=== PATIENT | male | born 2000 | race Two or more races ===

== ENCOUNTER 2019-12-21 13:00 | Emergency (ER) | payer OTHER ==
[2019-12-21] MEDS ORDERED: CLINDAMYCIN 600 MG/D5W RTU 600 MG/50 ML RTUPB IV ONE (14:00)
[2019-12-21] MEDS ORDERED: LIDOCAINE 1%/EPINEPHRINE INJ 20 ML VIAL INJ ONE (14:00)
--- NOTE | 2019-12-21 14:05 | ER Document Report ---
ED General - General Chief Complaint: Eye Problem Stated Complaint: RIGHT FACE SWELLING Time Seen by Provider: 12/21/19 13:58 Notes: CHIEF COMPLAINT: Right facial swelling HPI: 19-year-old male presenting to the emergency department complaining of swelling to the medial aspect of the right eyebrow over the last 3 days progressively worsening. Patient states that he did see his PCP yesterday who squeezed the area obtained some purulent discharge and started him on Bactrim and amoxicillin. Patient states the swelling has now spread around the right eye and into the face. No definite fevers. No vision loss ROS: See HPI - all other systems were reviewed and are otherwise negative Constitutional: no fever Eyes: no drainage, no blurred vision ENT: no runny nose, no sore throat Integumentary: + rash Allergy: no hives MEDICATIONS: I agree with the patient medications as charted by the RN. ALLERGIES: I agree with the allergies as charted by the RN. PAST MEDICAL HISTORY/PAST SURGICAL HISTORY: Reviewed and agree as charted by RN. SOCIAL HISTORY: Reviewed and agree as charted by RN. FAMILY HISTORY: No significant familial comorbid conditions directly related to patient complaint EXAM: Reviewed vital signs as charted by RN. CONSTITUTIONAL: Alert and oriented and responds appropriately to questions. Well-appearing; well-nourished mild distress secondary to discomfort HEAD: Normocephalic; atraumatic EYES: PERRL; Conjunctivae clear, sclerae non-icteric. There is swelling of the right upper and lower eyelids with slight erythema. There is an indurated fluctuant area measuring 1 cm to the medial aspect of the right eyebrow. There is some overlying erythema in the right preseptal region with very minimal tenderness on palpation ENT: normal nose; no rhinorrhea; moist mucous membranes; pharynx without lesions noted, no uvula edema or deviation, no tonsillar hypertrophy, phonation normal NECK: Supple without meningismus; non-tender; no cervical lymphadenopathy, no masses CARD: RRR; no murmurs, no clicks, no rubs, no gallops RESP: Normal chest excursion without splinting or tachypnea; breath sounds clear and equal bilaterally ABD/GI: non-distended; soft, non-tender BACK: The back appears normal and is non-tender to palpation, there is no CVA tenderness EXT: Normal ROM in all joints; non-tender to palpation; no cyanosis, no effusions, no edema SKIN: Normal color for age and race; warm; dry; good turgor NEURO: Moves all extremities equally; Motor and sensory function intact PSYCH: The patient's mood and manner are appropriate. Grooming and personal hygiene are appropriate. MDM: 19-year-old male with small abscess area medial to the eyebrow with periorbital and facial cellulitis. Started on Bactrim and amoxicillin yesterday. Will give patient a dose of IV clindamycin plan to incise and drain the abscess. Continue warm compresses switch patient to clindamycin orally. Bring patient back in 24 hours for recheck TRAVEL OUTSIDE OF THE [place] IN LAST 30 DAYS: No - Related Data Allergies/Adverse Reactions: No Known Allergies Allergy (Unverified 12/21/19 14:51) Past Medical History - Social History Smoking Status: Unknown if Ever Smoked Family History: Reviewed & Not Pertinent Patient has suicidal ideation: No Patient has homicidal ideation: No Physical Exam - Vital signs Vitals: Temp Pulse Resp BP Pulse Ox 98.2 F 86 18 151/83 H 97 12/21/19 13:05 12/21/19 13:05 12/21/19 13:05 12/21/19 13:05 12/21/19 13:05 Course - Vital Signs Vital signs: Temp Pulse Resp BP Pulse Ox 98.2 F 86 18 151/83 H 97 12/21/19 13:05 12/21/19 13:05 12/21/19 13:05 12/21/19 13:05 12/21/19 13:05 Procedures - Incision and Drainage Right Medial Face Time completed: 15:05 Type: Simple Anesthetic type: 1% Lidocaine w/epi mL's of anesthetic: 1 I&D procedure: Betadine prep applied, Iodoform packing placed, Sterile dressing applied Incision Method: Incision made by scalpel Amount/type of drainage: 1 Discharge - Discharge Clinical Impression: Abscess of face, Facial cellulitis Condition: Stable Disposition: HOME, SELF-CARE Additional Instructions: 1. packing out in 2-3 days 2. follow up with your primary care provider for further evaluation in 2-3 days 3. medicines as prescribed, take Tylenol or Motrin for pain 4. return sooner for any worsening condition, increasing redness or onset of fever 5. apply warm compresses to the wound area 2-3 times daily 6. stop the Bactrim, start the Clindamycin Prescriptions: Clindamycin HCl 300 mg PO TID #30 capsule
[2019-12-21] MEDS ORDERED: HYDROCODONE/ACETAMINOPHEN 5-325 MG TABLET PO ONE (15:24)
[2019-12-21 15:49] VITALS: BP 148/88
== END 2019-12-21 15:48 | disposition home or self-care (01) ==
LOC: ER 13:00
DX: L03.211 Cellulitis of face (principal); L02.01 Cutaneous abscess of face
CPT/HCPCS: 99283; 96365; 10060; J3490

== ENCOUNTER 2019-12-23 13:22 | Emergency (ER) | payer OTHER ==
--- NOTE | 2019-12-23 13:47 | ER Document Report ---
HPI - HPI Time Seen by Provider: 12/23/19 13:41 Notes: CHIEF COMPLAINT: Recheck of right eyebrow abscess and facial cellulitis HPI: 19-year-old male returning for reevaluation of right eyebrow's abscess with facial cellulitis. Has been taking the antibiotics. States the swelling is much improved. No fevers ROS: See HPI - all other systems were reviewed and are otherwise negative Constitutional: no fever Eyes: no drainage, no blurred vision ENT: no runny nose, no sore throat Integumentary: + rash Allergy: no hives MEDICATIONS: I agree with the patient medications as charted by the RN. ALLERGIES: I agree with the allergies as charted by the RN. PAST MEDICAL HISTORY/PAST SURGICAL HISTORY: Reviewed and agree as charted by RN. SOCIAL HISTORY: Reviewed and agree as charted by RN. FAMILY HISTORY: No significant familial comorbid conditions directly related to patient complaint EXAM: Reviewed vital signs as charted by RN. CONSTITUTIONAL: Alert and oriented and responds appropriately to questions. Well-appearing; well-nourished HEAD: Normocephalic; atraumatic EYES: PERRL; Conjunctivae clear, sclerae non-icteric ENT: normal nose; no rhinorrhea; moist mucous membranes NECK: Supple without meningismus; non-tender; no cervical lymphadenopathy, no masses SKIN: Normal color for age and race; warm; dry; good turgor; abscess cavity noted to the medial aspect of the right eyebrow. Packing was in place. The periorbital cellulitis and facial cellulitis that was present previously is much improved. Patient is now able to fully open the eye. I did remove the packing was able to express a small amount of purulent discharge and replaced a dry dressing over the wound area NEURO: Moves all extremities equally; Motor and sensory function intact PSYCH: The patient's mood and manner are appropriate. Grooming and personal hygiene are appropriate. MDM: 19-year-old male that I saw 2 days ago with a right facial and periorbital cellulitis with an abscess that was drained. Facial and periorbital cellulitis have improved. Removed packing, did not repack, dry dressings, warm compresses follow-up PCP Past Medical History - Social History Smoking Status: Unknown if Ever Smoked Family History: Reviewed & Not Pertinent Vertical Provider Document - INFECTION CONTROL TRAVEL OUTSIDE OF THE [place] IN LAST 30 DAYS: No Discharge - Discharge Clinical Impression: Wound check, abscess Condition: Stable Disposition: HOME, SELF-CARE Additional Instructions: Continue dry dressings until healed. Warm compresses twice daily. Follow-up primary care provider reevaluation continue antibiotics Forms: Return to Work
[2019-12-23 13:59] VITALS: BP 134/67
== END 2019-12-23 13:51 | disposition home or self-care (01) ==
LOC: ER 13:22
DX: L02.01 Cutaneous abscess of face (principal); L03.211 Cellulitis of face; L03.213 Periorbital cellulitis; Z48.01 Encounter for change or removal of surgical wound dressing
CPT/HCPCS: 99282